=== PATIENT | male | born 1940 | race Caucasian/White ===

== ENCOUNTER → 2016-08-26 | Outpatient (CLI) | payer OTHER ==
[~2016-08-26] MED LIST: MULT-190 PO; NUTR1TAB3 PO; TAMS0.4C38 PO
[2016-08-26 12:25] LABS: BLOOD UREA NITROGEN 17 mg/dl (7-18); BUN/CREATININE RATIO 14.3 (10-20)
== END | disposition home or self-care (01) ==
LOC: C.LAB 10:33
PROVIDERS: ATTEND Urology
DX: R10.9 Unspecified abdominal pain (principal)

== ENCOUNTER → 2016-09-03 | Outpatient (CLI) | payer OTHER ==
[~2016-09-03] MED LIST changes: +OPTIRAY 300 IV PRN
--- NOTE | 2016-09-03 13:38 | DIAGNOSTIC IMAGING REPORT ---
IV PYELOGRAM CLINICAL HISTORY: Bladder cancer. COMPARISON STUDY: Abdominal CT dated 03/12/2016. TECHNIQUE: An abdominal documentation liaison radiograph is performed. IVP pyelogram was then performed following the IV administration of 100 cc of Optiray 300, tomographic images are acquired in the corticomedullary and excretory phases of enhancement. Overhead views of the renal collecting system and bladder were obtained in multiple obliquities both pre and post void. FINDINGS: An abdominal documentation liaison radiograph shows a nonobstructed abdominal bowel gas pattern. No renal calculi are identified. The skeletal structures are osteopenic. Lumbosacral spondylosis is observed. Vascular calcifications are identified in the pelvis. Following contrast administration the kidneys enhance and excrete symmetrically. There is no hydronephrosis. No filling defects are identified within the renal collecting system bilaterally or along the course of the ureters to suggest urothelial lesion. The bladder was grossly normal as visualized. No significant post void residual is seen. IMPRESSION: Unremarkable IV pyelogram. Electronically signed by: Dylan Mora M.D. 09/03/2016 1:36 PM Dictated Date/Time: 09/03/2016 1:31 PM
== END | disposition home or self-care (01) ==
LOC: C.RAD 11:54
PROVIDERS: ATTEND Urology
DX: J43.9 Emphysema, unspecified (principal); R10.9 Unspecified abdominal pain

== ENCOUNTER → 2016-11-18 | Outpatient (CLI) | payer OTHER ==
[~2016-11-18] MED LIST changes: -OPTIRAY 300 IV PRN
== END | disposition home or self-care (01) ==
LOC: C.LABBC 08:02
PROVIDERS: ATTEND Urology
DX: C67.9 Malignant neoplasm of bladder, unspecified (principal); R97.20 Elevated prostate specific antigen [PSA]

== ENCOUNTER → 2016-11-26 | Outpatient (CLI) | payer OTHER | END | disposition home or self-care (01) | LOC: C.LABSPEC 18:06 | PROVIDERS: ATTEND Urology | DX: C67.9 Malignant neoplasm of bladder, unspecified (principal) ==

== ENCOUNTER → 2017-07-07 | Outpatient (CLI) | payer OTHER | END | disposition home or self-care (01) | LOC: C.LABBC 08:58 | PROVIDERS: ATTEND Urology | DX: C67.9 Malignant neoplasm of bladder, unspecified (principal) ==

== ENCOUNTER → 2018-03-23 | Outpatient (CLI) | payer OTHER | END | disposition home or self-care (01) | LOC: C.PATHSPEC 17:50 | PROVIDERS: ATTEND Urology | DX: C61 Malignant neoplasm of prostate (principal); C67.9 Malignant neoplasm of bladder, unspecified ==

== ENCOUNTER → 2018-04-05 | Outpatient (CLI) | payer OTHER ==
[2018-04-05 09:33] LABS: BLOOD UREA NITROGEN 19 mg/dl (7-18); CREATININE 1.17 mg/dl (0.60-1.40)
== END | disposition home or self-care (01) ==
LOC: C.LAB 07:45
PROVIDERS: ATTEND Urology
DX: C67.9 Malignant neoplasm of bladder, unspecified (principal)

== ENCOUNTER → 2018-04-19 | Outpatient (CLI) | payer OTHER ==
[~2018-04-19] MED LIST changes: +OPTIRAY 300 IV PRN
--- NOTE | 2018-04-19 14:04 | DIAGNOSTIC IMAGING REPORT ---
IVP W/OR W/O TOMOGRAMS CLINICAL HISTORY: C67.9 Recurrent transitional cell carcinoma of [id number] bladder carcinoma COMPARISON STUDY: 09/03/2016 FINDINGS: Survey evaluation of the abdomen shows renal and psoas shadows to be unremarkable. This examination is performed from the administration of nonionic contrast. There is prompt opacification of the upper collecting systems bilaterally. There are no significant filling defects identified. There is no evidence for hydronephrosis. Ureters normal in course and caliber. Bladder fills appropriately, with a suggestion of a potential small filling defect of the bladder base. This is unchanged, however compared to the prior study and potentially represents an indentation from the prostate.. There are no significant filling defects. Appears be a small left ureterocele. Post void shows no significant residual. IMPRESSION: 1. Unremarkable intravenous . 2. No change from the prior exam. 3. Focal indentation of the bladder base due to focal prominence of the prostate. The above report was generated using voice recognition software. It may contain grammatical, syntax or spelling errors. Electronically signed by: Jaswinder Krishna M.D. 04/19/2018 1:57 PM Dictated Date/Time: 04/19/2018 1:55 PM
== END | disposition home or self-care (01) ==
LOC: C.RAD 12:16
PROVIDERS: ATTEND Urology
DX: C67.9 Malignant neoplasm of bladder, unspecified (principal)

== ENCOUNTER 2024-11-01 23:13 | Inpatient (IN) ==
[2024-11-01 23:51] LABS: Basophils # (auto) 0.04 K/uL (0.00-0.20); Basophils % (auto) 0.3 %; Hematocrit (blood only) 44.3 % (42.0-52.0); Immature Granulocytes # (auto) 0.06 K/uL (0.01-0.20); Immature Granulocytes % (auto) 0.5 %; Lymphocytes # (auto) 0.93 K/uL (1.20-3.40); Mean Corpuscular Hemoglobin 35.9 pg (25.0-34.0); Mean Corpuscular Hgb Conc 33.9 g/dL (32.0-36.0); Monocytes # (auto) 1.74 K/uL (0.11-0.59); Monocytes % (auto) 14.9 %; Neutrophils # (auto) 8.92 K/uL (1.40-6.50); Neutrophils % (auto) 76.3 %; Platelet Count 154 K/uL (130-400); RDW Coefficient of Variation 14.6 % (11.5-14.5); RDW Standard Deviation 57.2 fL (36.4-46.3); Red Blood Count 4.18 M/uL (4.70-6.10); White Blood Count 11.69 K/ul (4.8-10.8)
[2024-11-02 00:04] LABS: Albumin Globulin Ratio 1.3 (0.9-2); Albumin Level 4.2 gm/dl (3.4-5.0); BUN Creatinine Ratio 21.6 (10-20); Bilirubin,Total 0.9 mg/dl (0.2-1.0); Calcium 9.6 mg/dl (8.6-10.3); Creatinine Clr Calc Pharmacy 45.6 ml/min; Globulin 3.2 gm/dl (2.5-4.0); Total Protein 7.4 gm/dl (6.0-8.3)
[2024-11-02] MEDS: CEFEPIME 2000MG 2,000 MG/20 ML SYR IV STA (00:12)
[2024-11-02] MEDS: ACETAMINOPHEN 1,000 MG/100 ML VIAL IV STA (00:12)
[2024-11-02 00:20] LABS: Thyroid Stimulating Hormone 1.912 uIu/ml (0.300-4.500)
--- NOTE | 2024-11-02 00:20 | Emergency Department Note ---
Impression & Plan Acute alteration in mental status, Fever ED Provider Note CHIEF COMPLAINT: Weakness HISTORY OF PRESENT ILLNESS: This 84-year-old male patient with PMH prostate cancer, bladder cancer, hyperlipidemia, alcohol dependency, urinary retention and urethral stricture with mild cognitive impairment presents to the emergency department with weakness for 4 days. He states he has not been able to get up off of the couch. He states he has been finding "hiding places" and states he has been trying to stay "low to the ground."Patient denies any fevers, chest pain, shortness of breath or abdominal pain. He is noted to have a fever at triage. A friend that checks on the patient daily was unable to get in contact with him by phone several times today and went to his house. Patient was noted to be on the couch and not able to get up. EMS was contacted. The patient was not noted to be incontinent however. Patient is a poor historian. REVIEW OF SYSTEMS: Unable to obtain a full review of systems secondary to the patient's mental status. ALLERGIES: see below MEDICATIONS: see below PMH: see below SOCIAL HISTORY: see below DDx: Influenza, COVID, UTI, metabolic abnormality, pneumonia, medication effect, intracranial mass, intracranial hemorrhage among others. PHYSICAL EXAM: Vital signs reviewed. General: Somewhat ill-appearing 84-year-old male, in no significant distress. HEENT: No scleral icterus, PERRLA, neck supple. moist mucous membranes. Cardiovascular: tachycardic but regular, no extra sounds. Pulmonary: Clear to auscultation bilaterally, normal work of breathing. Abdomen: Soft, nontender, nondistended, positive bowel sounds. Musculoskeletal: Atraumatic, no peripheral edema. Neurologic: Patient awake alert and answers questions, disoriented to year and time. seems to be confused. Skin: Warm, dry, no rash EMERGENCY DEPARTMENT COURSE/MDM: This patient was evaluated and appeared to be in no significant distress. IV access was obtained and laboratory work was drawn. The patient was placed on the factory laborer and noted to be in sinus tachycardia. He was also noted to have a low-grade fever at 38. IV fluids were initiated, blood cultures were drawn and the patient was hydrated with normal saline solution. Laboratory work reveals a mild leukocytosis, negative procalcitonin and lactate. UA is largely negative, BioFire is negative. Chest x-ray reveals some perihilar fullness without evidence of focal lung consolidation. Head CT is negative for acute process but does reveal evidence of old lacunar infarct and some atrophy. Patient was medicated with IV ceftriaxone and acetaminophen. Given the patient's fevers and change in mental status, patient's case was discussed with the hospitalist service to evaluate the patient for admission and further management. MONITORING: An order for cardiac monitoring was placed and the patient is noted to be in a sinus tachycardia at 108 beats per minute. RADIOLOGY: chest x-ray to my interpretation reveals no focal lung consolidation or failure. Head CT per radiology: IMPRESSION: No acute stroke or hemorrhage. 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 Non-specific white matter changes, most commonly seen with small vessel disease. EKG: To my interpretation reveals a sinus tachycardia at [address] segments. No PVC, no PAC. QTc of 433. DISPOSITION: Admission Past Med/Surg History Problem List (Updated 11/06/24 @ 17:30 by Kaitlynn Lozano MD) Fever (Acute) Acute alteration in mental status (Acute) Wernickes encephalopathy Urinary tract infection Confusion and disorientation MCI (mild cognitive impairment) Urethral stricture Abnormal gait BPH NOS w ur obs/LUTS Incomplete emptying of bladder Macrocytosis Alcohol dependence Chronic cough Exertional shortness of breath Vitamin D deficiency Hyperlipidemia Insomnia Transitional cell bladder cancer (~2007) Prostate cancer (02/27/15) "History of bladder CA diagnosed 09/30/2007 recheck cystoscopies with fulguration negative since 2010 Rising PSA, pretreatment PSA 6.87, biopsy stage T2a Status post ultrasound-guided biopsy revealing adenocarcinoma the prostate Leeson 3+3 Prostate volume 24.1 Prostate density 0.285" On 03/14/15 10:43 Agueda Pinto wrote "History of bladder CA diagnosed 09/30/2007 recheck cystoscopies with fulguration negative since 2010 Rising PSA, pretreatment PSA 6.87 Status post ultrasound-guided biopsy revealing adenocarcinoma the prostate Leeson 3+3 Prostate volume 24.1 Prostate density 0.285" Medical History Cognitive and behavioral changes - per friend/POA - Trevor Montalvo. patient is alert and oriented most times. 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 GERD (gastroesophageal reflux disease) POA/friend unsure of current issues Aortic atherosclerosis mild calcified plaque to thoracic aorta per [address] Surgical History History of tooth extraction all teeth removed Hx of cystoscopy with fulgeration in the office H/O transurethral resection of bladder tumor (TURBT) hx? H/O colonoscopy Family History Other No pertinent family history Unobtainable family history due to adoption Social History Smoking Status: Former smoker Tobacco Type: Cigarettes Age Started Using Tobacco: 13; Age Quit Using Tobacco: 67; packs per day: 7; Cigarettes Per Day: hx heavy smoking history; Second Hand Exposure: No; Do You Dip or Chew Tobacco: No; Hx Alcohol Use: No Hx Substance Use: No Preferred Language: Spanish Communication Ability: Impaired Communication Ability Comment: patient has memory loss, has appt with pcp in the near future Visual Impairment: Limited Hearing Ability: Normal Computing Systems Mechanic Required: No Beliefs That Will Affect Care: None marital status: Single Current Living Situation: Alone current occupational status: retired How many Children do You have: 0 Other Information That Helps Us Care for You: No Feels Safe at Home: Yes Safety Concerns: Feels Safe At This Time Childhood Exposure to Second-Hand Smoke: No Diet: regular caffeine: Yes Dental Care, Regularly: No Physical Activity Frequency: Does not Exercise Seatbelt Use: always Sunscreen Use: No Assistive Devices: None Allergies Allergies Allergy/AdvReac Type Severity Reaction Status Date / Time Penicillins Allergy Intermediate hives as a Verified 11/02/24 00:39 child cat dander Allergy Mild RASH Verified 11/02/24 00:39 dutasteride [From Angelica] Allergy Unknown CAN'T Verified 11/02/24 00:39 REMEMBER Home Meds Home Medications Medication Instructions Recorded Confirmed vit C 50 mg-E 15 unit-zinc cit 4.5 2 tab PO DAILY 08/09/19 11/02/24 mg-lutein 2.5 mg-zeaxan chew tablet (SchoolFeed) flntbdjx-ix-iwohr 300 mcg-K 60 1 tab PO DAILY 01/14/22 11/02/24 mcg-lycop 600 mcg-lutein 300 mcg tablet (Centrum Silver Ultra Men's) atorvastatin 10 mg tablet 10 mg PO HS 08/04/24 11/02/24 finasteride 5 mg tablet (Proscar) 5 mg PO QAM 08/04/24 11/02/24 tamsulosin 0.4 mg capsule 0.4 mg PO QAM 08/04/24 11/02/24 umeclidinium 62.5 mcg-vilanterol 1 inh inhalation QAM 08/04/24 11/02/24 25 mcg/actuation powdr for inhalation (Anoro Ellipta) Results & Data (ED) Vital Signs Vital Signs - 24 hr 11/01/24 23:18 11/01/24 23:18 11/01/24 23:18 Temperature 38.8 C H 38.8 C H Temperature Source Oral Oral Pulse Rate 108 H Pulse Rate [Apical] 108 H Pulse Rhythm Regular Pulse Rhythm [Apical] Regular Pulse Strength Normal Pulse Strength [Apical] Normal Respiratory Rate 18 18 Respiratory Effort / Characteristics Non-Labored Spontaneous Non-Labored Spontaneous Respiratory Depth Normal Normal Respiratory Pattern Regular Blood Pressure 125/62 Blood Pressure [Right Arm] 125/62 Blood Pressure Mean 83 Blood Pressure Mean [Right Arm] 83 Blood Pressure Position Semi-fowlers Blood Pressure Position [Right Arm] Semi-fowlers Pulse Oximetry 97 89 L 97 Oxygen Delivery Method Nasal Cannula Room Air Nasal Cannula Oxygen Flow Rate 2 2 Sepsis Recent Fever Within 48 Hours Yes Sepsis New/Unexplained Change in Mental Status No Sepsis Action Taken by Nursing Physician Notified Oxygen Flow Rate - Titration 2 Fraction of Inspired Oxygen - Titration 97 11/01/24 23:18 11/01/24 23:19 11/01/24 23:20 Temperature Temperature Source Pulse Rate 108 H 109 H 108 H Pulse Rate [Apical] Pulse Rhythm Regular Regular Pulse Rhythm [Apical] Pulse Strength Pulse Strength [Apical] Respiratory Rate 18 18 Respiratory Effort / Characteristics Respiratory Depth Respiratory Pattern Blood Pressure Blood Pressure [Right Arm] Blood Pressure Mean Blood Pressure Mean [Right Arm] Blood Pressure Position Blood Pressure Position [Right Arm] Pulse Oximetry 97 97 Oxygen Delivery Method Nasal Cannula Nasal Cannula Oxygen Flow Rate 2 2 Sepsis Recent Fever Within 48 Hours Sepsis New/Unexplained Change in Mental Status Sepsis Action Taken by Nursing Oxygen Flow Rate - Titration Fraction of Inspired Oxygen - Titration Home Medications Current Medication List: was personally reviewed by me Laboratory Data Attestation: I reviewed the patient's lab results. 11/04/24 13:04 11/04/24 13:04 Lab Results 11/01/24 11/01/24 11/02/24 Range/Units 23:24 23:39 00:34 WBC 11.69 H (4.8-10.8) K/ul RBC 4.18 L (4.70-6.10) M/uL Hgb 15.0 (14.0-18.0) g/dl Hct 44.3 (42.0-52.0) % MCV 106.0 H (80.0-100.0) fL MCH 35.9 H (25.0-34.0) pg MCHC 33.9 (32.0-36.0) g/dL RDW Std Deviation 57.2 H (36.4-46.3) fL RDW Coeff of Mary 14.6 H (11.5-14.5) % Plt Count 154 (130-400) K/uL MPV 10.0 (9.4-12.4) fL Immature Gran % (Auto) 0.5 % Neut % (Auto) 76.3 % Lymph % (Auto) 8.0 % [place] % (Auto) 14.9 % Eos % (Auto) 0.0 % Baso % (Auto) 0.3 % Neut # (Auto) 8.92 H (1.40-6.50) K/uL Lymph # (Auto) 0.93 L (1.20-3.40) K/uL [place] # (Auto) 1.74 H (0.11-0.59) K/uL Eos # (Auto) 0.00 (0.00-0.50) K/uL Baso # (Auto) 0.04 (0.00-0.20) K/uL Immature Gran # (Auto) 0.06 (0.01-0.20) K/uL Sodium 138 (136-145) mmol/L Potassium 4.0 (3.5-5.1) mmol/L Chloride 105 (98-107) mmol/L Carbon Dioxide 23 (21-32) mmol/L Anion Gap 10 (3-11) BUN 29 H (6-23) mg/dl Creatinine 1.34 (0.6-1.4) mg/dl Est Cr Clr Drug Dosing 45.6 ml/min eGFR 52.24 BUN/Creatinine Ratio 21.6 H (10-20) Glucose 160 H (70-99(Fasting)) mg/dl Estimat Average Glucose 120 mg/dl Hemoglobin A1c 5.8 H (4.5-5.6) % Lactate (0.4-2.0) mmol/L Calcium 9.6 (8.6-10.3) mg/dl Magnesium 2.0 (1.7-2.4) mg/dl Total Bilirubin 0.9 (0.2-1.0) mg/dl AST 60 H (13-39) U/L ALT 19 (7-52) U/L Alkaline Phosphatase 54 (34-104) U/L Total Creatine Kinase (30-223) U/L Total Protein 7.4 (6.0-8.3) gm/dl Albumin 4.2 (3.4-5.0) gm/dl Globulin 3.2 (2.5-4.0) gm/dl Albumin/Globulin Ratio 1.3 (0.9-2) Procalcitonin 0.38 (0-0.5) ng/ml TSH 1.912 (0.300-4.500) uIu/ml Urine Color Yellow Urine Appearance Clear (Clear) Urine pH 5.5 (4.5-7.5) Ur Specific [place] 1.022 (1.000-1.030) Urine Protein 2+ H (Negative) Urine Glucose (UA) Negative (Negative) Urine Ketones 2+ H (Negative) Urine Blood 2+ H (Negative) Urine Nitrite Negative (Negative) Urine Bilirubin Negative (Negative) Urine Urobilinogen Negative (Negative) Ur Leukocyte Esterase Trace H (Negative) Urine WBC (Auto) 0-5 (0-5) /hpf Urine RBC (Auto) 3-5 H (0-2) /hpf U Hyaline Cast (Auto) 3-5 H (0-2) /lpf U Epithel Cells (Auto) 0-2 (0-2) /hpf Urine Bacteria (Auto) None Seen (None Seen) Ethyl Alcohol mg/dL < 10.0 (<10.0) mg/dl Adenovirus (PCR) Not Detected (NotDetected) B. pertussis DNA (PCR) Not Detected (NotDetected) B.parapertussis DNA PCR Not Detected (NotDetected) C. pneumoniae DNA (PCR) Not Detected (NotDetected) Coronavirus OC43 (PCR) Not Detected (NotDetected) Coronavirus HKU1 (PCR) Not Detected (NotDetected) Coronavirus 229E (PCR) Not Detected (NotDetected) SARS-CoV-2 (PCR) Not Detected (NotDetected) Coronavirus NL63 (PCR) Not Detected (NotDetected) Human Metapneumovir PCR Not Detected (NotDetected) Influenza Type A (PCR) Not Detected (NotDetected) Influenza Type B (PCR) Not Detected (NotDetected) M. pneumoniae (PCR) Not Detected (NotDetected) Parainfluenza 1 (PCR) Not Detected (NotDetected) Parainfluenza 2 (PCR) Not Detected (NotDetected) Parainfluenza 3 (PCR) Not Detected (NotDetected) Parainfluenza 4 (PCR) Not Detected (NotDetected) RSV (PCR) Not Detected (NotDetected) Entero/Rhino (PCR) Not Detected (NotDetected) 11/02/24 11/03/24 Range/Units 01:02 09:04 WBC (4.8-10.8) K/ul RBC (4.70-6.10) M/uL Hgb (14.0-18.0) g/dl Hct (42.0-52.0) % MCV (80.0-100.0) fL MCH (25.0-34.0) pg MCHC (32.0-36.0) g/dL RDW Std Deviation (36.4-46.3) fL RDW Coeff of Mary (11.5-14.5) % Plt Count (130-400) K/uL MPV (9.4-12.4) fL Immature Gran % (Auto) % Neut % (Auto) % Lymph % (Auto) % [place] % (Auto) % Eos % (Auto) % Baso % (Auto) % Neut # (Auto) (1.40-6.50) K/uL Lymph # (Auto) (1.20-3.40) K/uL [place] # (Auto) (0.11-0.59) K/uL Eos # (Auto) (0.00-0.50) K/uL Baso # (Auto) (0.00-0.20) K/uL Immature Gran # (Auto) (0.01-0.20) K/uL Sodium (136-145) mmol/L Potassium (3.5-5.1) mmol/L Chloride (98-107) mmol/L Carbon Dioxide (21-32) mmol/L Anion Gap (3-11) BUN (6-23) mg/dl Creatinine (0.6-1.4) mg/dl Est Cr Clr Drug Dosing ml/min eGFR BUN/Creatinine Ratio (10-20) Glucose (70-99(Fasting)) mg/dl Estimat Average Glucose mg/dl Hemoglobin A1c (4.5-5.6) % Lactate 0.8 (0.4-2.0) mmol/L Calcium (8.6-10.3) mg/dl Magnesium (1.7-2.4) mg/dl Total Bilirubin (0.2-1.0) mg/dl AST (13-39) U/L ALT (7-52) U/L Alkaline Phosphatase (34-104) U/L Total Creatine Kinase 920 H (30-223) U/L Total Protein (6.0-8.3) gm/dl Albumin (3.4-5.0) gm/dl Globulin (2.5-4.0) gm/dl Albumin/Globulin Ratio (0.9-2) Procalcitonin (0-0.5) ng/ml TSH (0.300-4.500) uIu/ml Urine Color Urine Appearance (Clear) Urine pH (4.5-7.5) Ur Specific [place] (1.000-1.030) Urine Protein (Negative) Urine Glucose (UA) (Negative) Urine Ketones (Negative) Urine Blood (Negative) Urine Nitrite (Negative) Urine Bilirubin (Negative) Urine Urobilinogen (Negative) Ur Leukocyte Esterase (Negative) Urine WBC (Auto) (0-5) /hpf Urine RBC (Auto) (0-2) /hpf U Hyaline Cast (Auto) (0-2) /lpf U Epithel Cells (Auto) (0-2) /hpf Urine Bacteria (Auto) (None Seen) Ethyl Alcohol mg/dL (<10.0) mg/dl Adenovirus (PCR) (NotDetected) B. pertussis DNA (PCR) (NotDetected) B.parapertussis DNA PCR (NotDetected) C. pneumoniae DNA (PCR) (NotDetected) Coronavirus OC43 (PCR) (NotDetected) Coronavirus HKU1 (PCR) (NotDetected) Coronavirus 229E (PCR) (NotDetected) SARS-CoV-2 (PCR) (NotDetected) Coronavirus NL63 (PCR) (NotDetected) Human Metapneumovir PCR (NotDetected) Influenza Type A (PCR) (NotDetected) Influenza Type B (PCR) (NotDetected) M. pneumoniae (PCR) (NotDetected) Parainfluenza 1 (PCR) (NotDetected) Parainfluenza 2 (PCR) (NotDetected) Parainfluenza 3 (PCR) (NotDetected) Parainfluenza 4 (PCR) (NotDetected) RSV (PCR) (NotDetected) Entero/Rhino (PCR) (NotDetected) Administered Medications Aspirin (Aspirin 81 Mg Chew) 81 mg PO DAILY MAX Stop: 12/02/24 08:59 Last Admin: 11/06/24 07:46 Dose: Not Given Documented By: Admin: 11/05/24 09:18 Dose: 81 mg Documented By: Admin: 11/04/24 08:22 Dose: 81 mg Documented By: Admin: 11/03/24 09:28 Dose: 81 mg Documented By: Admin: 11/02/24 09:36 Dose: 81 mg Documented By: MMF Atorvastatin Calcium (Atorvastatin 10 Mg Tab) 10 mg PO HS MAX Stop: 12/02/24 20:59 Last Admin: 11/05/24 20:01 Dose: 10 mg Documented By: Admin: 11/04/24 20:56 Dose: 10 mg Documented By: Admin: 11/03/24 21:10 Dose: 10 mg Documented By: Admin: 11/02/24 20:25 Dose: 10 mg Documented By: PARISH Finasteride (Finasteride 5 Mg Tab) 5 mg PO QAM MAX Stop: 12/02/24 08:59 Last Admin: 11/06/24 07:45 Dose: 5 mg Documented By: Admin: 11/05/24 08:09 Dose: 5 mg Documented By: Admin: 11/04/24 08:10 Dose: 5 mg Documented By: Admin: 11/03/24 09:28 Dose: 5 mg Documented By: Admin: 11/02/24 09:36 Dose: 5 mg Documented By: LUCAS Thiamine HCl 100 mg/ Syringe 10 mls @ 2 mls/min IV QAM [facility] Stop: 12/02/24 08:59 Last Admin: 11/06/24 07:47 Dose: 2 mls/min Documented By: Admin: 11/05/24 08:10 Dose: 2 mls/min Documented By: Admin: 11/04/24 08:10 Dose: 2 mls/min Documented By: Admin: 11/03/24 09:28 Dose: 2 mls/min Documented By: Admin: 11/02/24 09:37 Dose: 2 mls/min Documented By: LUCAS Folic Acid 1 mg/ Syringe 10 mls @ 5 mls/min IV QAM MAX Stop: 12/02/24 08:59 Last Admin: 11/06/24 07:46 Dose: 5 mls/min Documented By: Admin: 11/05/24 08:10 Dose: 5 mls/min Documented By: Admin: 11/04/24 08:10 Dose: 5 mls/min Documented By: Admin: 11/03/24 09:27 Dose: 5 mls/min Documented By: Admin: 11/02/24 09:37 Dose: 5 mls/min Documented By: LUCAS Lorazepam (Lorazepam 2 Mg/1 Ml Vial) 1 mg IV UD PRN; Protocol PRN Reason: EtOH Withdrawal AWSS Score 6,7 Stop: 12/02/24 02:45 Last Admin: 11/02/24 20:37 Dose: 1 mg Documented By: PARISH Lorazepam (Lorazepam 2 Mg/1 Ml Vial) 2 mg IV UD PRN; Protocol PRN Reason: EtOH Withdrawal AWSS Score 8,9 Stop: 12/02/24 02:45 Last Admin: 11/03/24 01:06 Dose: 2 mg Documented By: PARISH Melatonin (Melatonin 3 Mg Tab) 6 mg PO HS PRN PRN Reason: Sleep Stop: 12/03/24 19:35 Last Admin: 11/03/24 21:10 Dose: 6 mg Documented By: PARISH Tamsulosin HCl (Tamsulosin Hcl 0.4 Mg Cap) 0.4 mg PO QAM [facility] Stop: 12/02/24 08:59 Last Admin: 11/06/24 07:46 Dose: 0.4 mg Documented By: Admin: 11/05/24 08:09 Dose: 0.4 mg Documented By: Admin: 11/04/24 08:10 Dose: 0.4 mg Documented By: Admin: 11/03/24 09:28 Dose: 0.4 mg Documented By: Admin: 11/02/24 09:36 Dose: 0.4 mg Documented By: MMF Umeclidinium/Vilanterol (Umeclidinium/Vilanterol 62.5/25mcg 7 Puffs/Inhaler) 1 puffs [facility] Stop: 12/02/24 08:59 Last Admin: 11/06/24 07:46 Dose: 1 puffs Documented By: Admin: 11/05/24 08:10 Dose: 1 puffs Documented By: Admin: 11/04/24 08:10 Dose: 1 puffs Documented By: Admin: 11/03/24 09:36 Dose: Not Given Documented By: Admin: 11/02/24 09:36 Dose: 1 puffs Documented By: MMF Discontinued Medications Acetaminophen (Ofirmev) 1,000 mg in 100 mls @ 400 mls/hr IV NOW STA Stop: 11/02/24 00:16 Last Infusion: 11/02/24 00:46 Dose: Infused Documented By: Admin: 11/02/24 00:12 Dose: 400 mls/hr Documented By: IDD Cefepime HCl (Maxipime 2000mg) 2,000 mg in 20 mls @ 5 mls/min IV NOW STA; Protocol Stop: 11/02/24 00:06 Last Admin: 11/02/24 00:12 Dose: 5 mls/min Documented By: MAMADOU Sodium Chloride (Nss) 1,000 mls @ 999 mls/hr IV .Q1H1M ONE Stop: 11/02/24 01:57 Last Infusion: 11/02/24 02:33 Dose: Infused Documented By: Admin: 11/02/24 01:06 Dose: 999 mls/hr Documented By: MAMADOU Melatonin (Melatonin 3 Mg Tab) 6 mg PO NOW STA Stop: 11/03/24 03:26 Last Admin: 11/03/24 03:46 Dose: 6 mg Documented By: PARISH Imaging Data Radiologist's Impression: Head CT 11/01/24 23:25 Exam(s): CT HEAD Without Contrast EXAM: CT Head Without Intravenous Contrast CLINICAL HISTORY: AMS. TECHNIQUE: Axial computed tomography images of the head/brain without intravenous contrast. CTDI is 38.78 mGy and DLP is 625.8 mGy-cm. Automated exposure control was utilized for the study. A dose lowering technique was utilized adhering to the principles of ALARA. COMPARISON: No relevant prior studies available. FINDINGS: Brain: Age-appropriate generalized atrophy. No acute stroke. 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 Mild supratentorial periventricular and subcortical white matter changes. No acute hemorrhage or abnormal extra-axial fluid collection. Ventricles: No hydrocephalus. No midline shift. Bones/joints: Unremarkable. No acute fracture. Soft tissues: Unremarkable. Sinuses: Unremarkable as visualized. No acute sinusitis. IMPRESSION: No acute stroke or hemorrhage. 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 Non-specific white matter changes, most commonly seen with small vessel disease. Electronically signed by: Neftali Campbell M.D. 11/02/24 00:45 AM Discharge Plan Visit Data Chief Complaint: Weakness Stated Complaint: WEAKNESS ED Provider: Kaitlynn Lozano Discharge Problem: Acute alteration in mental status, Fever Patient Disposition: Admitted As Inpatient Discharge Instructions Interventions: ED Discharge Assessment Last Done: 11/02/24 02:46 Discharge Problem: Fever Qualifiers: Fever type: unspecified Qualified Code(s): R50.9 - Fever, unspecified
[2024-11-02 00:41] LABS: Adenovirus PCR Not Detected (NotDetected); Bordetella parapertussis PCR Not Detected (NotDetected); Bordetella pertussis PCR Not Detected (NotDetected); Chlamydia pneumoniae PCR Not Detected (NotDetected); Coronavirus 229E PCR Not Detected (NotDetected); Coronavirus CoV-2 (COVID19)PCR Not Detected (NotDetected); Coronavirus HKU1 PCR Not Detected (NotDetected); Coronavirus NL63 PCR Not Detected (NotDetected); Coronavirus OC43PCR Not Detected (NotDetected); Human Metapneumovirus PCR Not Detected (NotDetected); Influenza A PCR Not Detected (NotDetected); Influenza B PCR Not Detected (NotDetected); Mycoplasma pneumoniae PCR Not Detected (NotDetected); Parainfluenza Virus 1 PCR Not Detected (NotDetected); Parainfluenza Virus 2 PCR Not Detected (NotDetected); Parainfluenza Virus 3 PCR Not Detected (NotDetected); Parainfluenza Virus 4 PCR Not Detected (NotDetected); Respiratory Syncytial VirusPCR Not Detected (NotDetected); Rhinovirus/Enterovirus PCR Not Detected (NotDetected)
--- NOTE | 2024-11-02 00:46 | CT Scan Report ---
Exam(s): CT HEAD Without Contrast EXAM: CT Head Without Intravenous Contrast CLINICAL HISTORY: AMS. TECHNIQUE: Axial computed tomography images of the head/brain without intravenous contrast. CTDI is 38.78 mGy and DLP is 625.8 mGy-cm. Automated exposure control was utilized for the study. A dose lowering technique was utilized adhering to the principles of ALARA. COMPARISON: No relevant prior studies available. FINDINGS: Brain: Age-appropriate generalized atrophy. No acute stroke. 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 Mild supratentorial periventricular and subcortical white matter changes. No acute hemorrhage or abnormal extra-axial fluid collection. Ventricles: No hydrocephalus. No midline shift. Bones/joints: Unremarkable. No acute fracture. Soft tissues: Unremarkable. Sinuses: Unremarkable as visualized. No acute sinusitis. IMPRESSION: No acute stroke or hemorrhage. 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 Non-specific white matter changes, most commonly seen with small vessel disease. Electronically signed by: Neftali Campbell M.D. 11/02/24 00:45 AM
[2024-11-02 00:57] LABS: Appearance Urine Clear (Clear); Bacteria Urine Automated None Seen (None Seen); Bilirubin Urine Negative (Negative); Blood Urine 2+ (Negative); Color Urine Yellow; Epithelial Cell Urine Auto 0-2 /hpf (0-2); Glucose Urine UA Negative (Negative); Ketones Urine 2+ (Negative); Leukocyte Esterase Urine Trace (Negative); Nitrite Urine Negative (Negative); Protein Urine 2+ (Negative); Specific Gravity Urine 1.022 (1.000-1.030); Urobilinogen Urine Negative (Negative); WBC Urine Automated 0-5 /hpf (0-5); pH Urine 5.5 (4.5-7.5)
[2024-11-02] MEDS: SODIUM CHLORIDE 0.9% 1,000 ML IV ONE (01:06)
--- NOTE | 2024-11-02 01:39 | History & Physical Report ---
Date of Service November 02, 2024 Assessment & Plan (1) Confusion and disorientation: (2) Alcohol dependence: (3) Urinary tract infection: (4) Wernickes encephalopathy: (5) Prostate cancer: (6) Transitional cell bladder cancer: Plan The patient is an 84-year-old male with past medical history including mild cognitive impairment, urethral stricture, BPH with LUTS, incomplete bladder emptying, alcohol dependence, vit D deficiency, hyperlipidemia, insomnia, transitional bladder cell cancer, and prostate cancer.Patient is brought to the emergency department after his friend who checks on him regularly, found him in a more disheveled state than usual., Lying on the sofa in his home, and unable to get up on his own. His friend reports that he usually checks him on a daily basis, had not seen him yesterday, but did become concerned when he tried to call his friend this evening, and Mr. Thomas did not respond. Mr. Thomas has been undergoing weekly BCG intravesical injections, and his most recent was on Thursday, 4 days ago. The patient was brought to the emergency department for evaluation, was found to be weak, able to respond to questions but slowed, and was referred for evaluation for admission to the [facility]. Workup in the emergency department included a chest x-ray which was negative, and CT scan of head without contrast which showed a small right basal ganglia infarct and chronic small vessel disease. From the emergency department, patient received Tylenol 1 g IV, and cefepime 2 g IV. Confusion and disorientation- Multifactorial, with contributing factors including not limited to: Urinary tract infection status post BCG intravesical injection, Warnicke's encephalopathy, progression of underlying dementia, progression to general debilitation, alcohol withdrawal, others Urinary tract infection- Most recent intravesical injection treatment was about 4 days ago Follow urine culture and sensitivity Empiric cefepime 2 g IV every 24 hours Warnicke's encephalopathy/alcohol withdrawal/alcohol dependence- AWSS protocol with IV Ativan Thiamine 100 mg IV daily Folic acid 1 mg IV daily Suspect this is a new diagnosis Cognitive impairment/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 His friend reports that he usually checks him on a daily basis, had not seen him yesterday, but did become concerned when he tried to call his friend this evening, and Mr. Thomas did not respond. Mr. Thomas has been undergoing weekly BCG intravesical injections, and his most recent was on Thursday, 4 days ago. The patient was brought to the emergency department for evaluation, was found to be weak, able to respond to questions but slowed, and was referred for evaluation for admission to the [facility] Primary Care Provider: Mike Zurita DO The patient is an 84-year-old male with past medical history including mild cognitive impairment, urethral stricture, BPH with LUTS, incomplete bladder emptying, alcohol dependence, vit D deficiency, hyperlipidemia, insomnia, transitional bladder cell cancer, and prostate cancer.Patient is brought to the emergency department after his friend who checks on him regularly, found him in a more disheveled state than usual., Lying on the sofa in his home, and unable to get up on his own. His friend reports that he usually checks him on a daily basis, had not seen him yesterday, but did become concerned when he tried to call his friend this evening, and Mr. Thomas did not respond. Mr. Thomas has been undergoing weekly BCG intravesical injections, and his most recent was on Thursday, 4 days ago. The patient was brought to the emergency department for evaluation, was found to be weak, able to respond to questions but slowed, and was referred for evaluation for admission to the [facility] Allergies Allergy/AdvReac Type Severity Reaction Status Date / Time Penicillins Allergy Intermediate hives as a Verified 11/02/24 00:39 child cat dander Allergy Mild RASH Verified 11/02/24 00:39 dutasteride [From Angelica] Allergy Unknown CAN'T Verified 11/02/24 00:39 REMEMBER Home Medications Medication Instructions Recorded Confirmed Type vit C 50 mg-E 15 unit-zinc cit 4.5 2 tab PO DAILY 08/09/19 11/02/24 History mg-lutein 2.5 mg-zeaxan chew tablet (Happy Kidz) lnucwwzz-ac-srdwo 300 mcg-K 60 1 tab PO DAILY 01/14/22 11/02/24 History mcg-lycop 600 mcg-lutein 300 mcg tablet (Centrum Silver Ultra Men's) atorvastatin 10 mg tablet 10 mg PO HS 08/04/24 11/02/24 History finasteride 5 mg tablet (Proscar) 5 mg PO QAM 08/04/24 11/02/24 History tamsulosin 0.4 mg capsule 0.4 mg PO QAM 08/04/24 11/02/24 History umeclidinium 62.5 mcg-vilanterol 1 inh inhalation QAM 08/04/24 11/02/24 History 25 mcg/actuation powdr for inhalation (Anoro Ellipta) Past Med/Surg History Problem List (Updated 11/02/24 @ 03:44 by Gene Bear MD) Wernickes encephalopathy Urinary tract infection Confusion and disorientation MCI (mild cognitive impairment) Urethral stricture Abnormal gait BPH NOS w ur obs/LUTS Incomplete emptying of bladder Macrocytosis Alcohol dependence Chronic cough Exertional shortness of breath Vitamin D deficiency Hyperlipidemia Insomnia Transitional cell bladder cancer (~2007) Prostate cancer (02/27/15) "History of bladder CA diagnosed 09/30/2007 recheck cystoscopies with fulguration negative since 2010 Rising PSA, pretreatment PSA 6.87, biopsy stage T2a Status post ultrasound-guided biopsy revealing adenocarcinoma the prostate Leeson 3+3 Prostate volume 24.1 Prostate density 0.285" On 03/14/15 10:43 Agueda Pinto wrote "History of bladder CA diagnosed 09/30/2007 recheck cystoscopies with fulguration negative since 2010 Rising PSA, pretreatment PSA 6.87 Status post ultrasound-guided biopsy revealing adenocarcinoma the prostate L eeson 3+3 Prostate volume 24.1 Prostate density 0.285" Medical History Cognitive and behavioral changes - per friend/POA - Trevor Montalvo. patient is alert and oriented most times. 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 GERD (gastroesophageal reflux disease) POA/friend unsure of current issues Aortic atherosclerosis mild calcified plaque to thoracic aorta per [address] Surgical History History of tooth extraction all teeth removed Hx of cystoscopy with fulgeration in the office H/O transurethral resection of bladder tumor (TURBT) hx? H/O colonoscopy Family History Other No pertinent family history Unobtainable family history due to adoption Social History Smoking Status: Former smoker Tobacco Type: Cigarettes Age Started Using Tobacco: 13; Age Quit Using Tobacco: 67; packs per day: 7; Cigarettes Per Day: hx heavy smoking history; Second Hand Exposure: No; Do You Dip or Chew Tobacco: No; Hx Alcohol Use: No Hx Substance Use: No Preferred Language: Slovenian Communication Ability: Effective Communication Ability Comment: patient has memory loss, has appt with pcp in the near future Visual Impairment: Limited Hearing Ability: Normal Packing And Final Assembly Supervisor Required: No Beliefs That Will Affect Care: None marital status: Single Current Living Situation: Alone current occupational status: retired How many Children do You have: 0 Other Information That Helps Us Care for You: No Feels Safe at Home: Yes Safety Concerns: Feels Safe At This Time Childhood Exposure to Second-Hand Smoke: No Diet: regular caffeine: Yes Dental Care, Regularly: No Physical Activity Frequency: Does not Exercise Seatbelt Use: always Sunscreen Use: No Assistive Devices: None Review of Systems Review of Systems: The patient denies chest pain, palpitations, shortness of breath, dyspnea on exertion, cough, lower extremity swelling, sore throat, fevers, chills, sweats, nausea, vomiting, diarrhea , constipation, abdominal pain, pelvic pain, blood in urine or stool, dysuria, urinary frequency or urgency, lightheadedness, dizziness, headache, loss of consciousness, rash, abnormal bruising or bleeding, focal weakness, numbness or tingling in arms or legs, generalized arthralgias or myalgias, back or neck pain, or night sweats. The review of systems is otherwise negative other than for that already noted above, and at least 10 systems have been reviewed. Physical Exam Physical Exam: The patient is awake, mildly confused, well developed and well nourished, normocephalic and atraumatic, lying in bed and in no acute distress. HEENT--PERRL, EOMI, mucous membranes and oropharynx mildly dry. Neck--supple. No JVD. No bruits. Thyroid normal, trachea midline, no adenopathy. Heart--normal S1 and S2. No murmurs, rubs or gallops. Lungs--clear bilaterally, no respiratory distress, no accessory muscle use. Abdomen--normal bowel sounds and soft. Nontender. Nondistended, no hernias or masses, no organomegaly. Extremities--no cyanosis or clubbing. No edema. There are good distal pulses b/l. Dermatologic--normal skin turgor, normal color, no abnormal lymph nodes, no rash. Neurologic--cranial nerves II through XII grossly intact. Rheumatologic--normal range of motion. Psychiatric--normal affect. Results & Data Results & Data Vital Signs (Past 12 Hours) Vital Signs Temp Pulse Pulse Resp BP BP Pulse Ox 11/02/24 01:06 36.6 C 86 18 97 11/01/24 23:20 108 H 18 97 11/01/24 23:19 109 H 11/01/24 23:18 108 H 18 97 11/01/24 23:18 38.8 C H 108 H 18 125/62 97 11/01/24 23:18 89 L 11/01/24 23:18 38.8 C H 108 H 18 125/62 97 O2 Del Method O2 Flow Rate 11/02/24 01:06 Nasal Cannula 2 11/01/24 23:20 Nasal Cannula 2 11/01/24 23:19 11/01/24 23:18 Nasal Cannula 2 11/01/24 23:18 Nasal Cannula 2 11/01/24 23:18 Room Air 11/01/24 23:18 Nasal Cannula 2 Laboratory Results Laboratory Results WBC 11.69 K/ul (4.8-10.8) H 11/01/24 23:24 RBC 4.18 M/uL (4.70-6.10) L 11/01/24 23:24 Hgb 15.0 g/dl (14.0-18.0) 11/01/24 23:24 Hct 44.3 % (42.0-52.0) 11/01/24 23:24 MCV 106.0 fL (80.0-100.0) H 11/01/24 23:24 MCH 35.9 pg (25.0-34.0) H 11/01/24 23:24 MCHC 33.9 g/dL (32.0-36.0) 11/01/24 23: RDW Std Deviation 57.2 fL (36.4-46.3) H 11/01/24: RDW Coeff of Mary 14.6 % (11.5-14.5) H 11/01/24 23: Plt Count 154 K/uL (130-400) 11/01/24 23: MPV 10.0 fL (9.4-12.4) 11/01/24 23: Immature Gran % (Auto) 0.5 % 11/01/24 23: Neut % (Auto) 76.3 % 11/01/24 23:24 Lymph % (Auto) 8.0 % 11/01/24 23:24 Starke % (Auto) 14.9 % 11/01/24 23:24 Eos % (Auto) 0.0 % 11/01/24 23: Baso % (Auto) 0.3 % 11/01/24 23:24 Neut # (Auto) 8.92 K/uL (1.40-6.50) H 11/01/24 23:24 Lymph # (Auto) 0.93 K/uL (1.20-3.40) L 11/01/24 23:24 Starke # (Auto) 1.74 K/uL (0.11-0.59) H 11/01/24 23:24 Eos # (Auto) 0.00 K/uL (0.00-0.50) 11/01/24 23:24 Baso # (Auto) 0.04 K/uL (0.00-0.20) 11/01/24 23:24 Immature Gran # (Auto) 0.06 K/uL (0.01-0.20) 11/01/24 23:24 Sodium 138 mmol/L (136-145) 11/01/24 23:24 Potassium 4.0 mmol/L (3.5-5.1) 11/01/24 23:24 Chloride 105 mmol/L (98-107) 11/01/24 23:24 Carbon Dioxide 23 mmol/L (21-32) 11/01/24 23:24 Anion Gap 10 (3-11) 11/01/24 23:24 BUN 29 mg/dl (6-23) H 11/01/24 23:24 Creatinine 1.34 mg/dl (0.6-1.4) 11/01/24 23:24 Est Cr Clr Drug Dosing 45.6 ml/min 11/01/24 23:24 eGFR 52.24 11/01/24 23:24 BUN/Creatinine Ratio 21.6 (10-20) H 11/01/24 23:24 Glucose 160 mg/dl (70-99(Fasting)) H 11/01/24 23:24 Lactate 0.8 mmol/L (0.4-2.0) 11/02/24 01:02 Calcium 9.6 mg/dl (8.6-10.3) 11/01/24 23:24 Magnesium 2.0 mg/dl (1.7-2.4) 11/01/24 23:24 Total Bilirubin 0.9 mg/dl (0.2-1.0) 11/01/24 23:24 AST 60 U/L (13-39) H 11/01/24 23:24 ALT 19 U/L (7-52) 11/01/24 23:24 Alkaline Phosphatase 54 U/L (34-104) 11/01/24 23:24 Total Protein 7.4 gm/dl (6.0-8.3) 11/01/24 23:24 Albumin 4.2 gm/dl (3.4-5.0) 11/01/24 23:24 Globulin 3.2 gm/dl (2.5-4.0) 11/01/24 23:24 Albumin/Globulin Ratio 1.3 (0.9-2) 11/01/24 23:24 Procalcitonin 0.38 ng/ml (0-0.5) 11/01/24 23:24 TSH 1.912 uIu/ml (0.300-4.500) 11/01/24 23:24 Urine Color Yellow 11/02/24 00:34 Urine Appearance Clear (Clear) 11/02/24 00:34 Urine pH 5.5 (4.5-7.5) 11/02/24 00:34 Ur Specific Bowers 1.022 (1.000-1.030) 11/02/24 00:34 Urine Protein 2+ (Negative) H 11/02/24 00:34 Urine Glucose (UA) Negative (Negative) 11/02/24 00:34 Urine Ketones 2+ (Negative) H 11/02/24 00:34 Urine Blood 2+ (Negative) H 11/02/24 00:34 Urine Nitrite Negative (Negative) 11/02/24 00:34 Urine Bilirubin Negative (Negative) 11/02/24 00:34 Urine Urobilinogen Negative (Negative) 11/02/24 00:34 Ur Leukocyte Esterase Trace (Negative) H 11/02/24 00:34 Urine WBC (Auto) 0-5 /hpf (0-5) 11/02/24 00:34 Urine RBC (Auto) 3-5 /hpf (0-2) H 11/02/24 00:34 U Hyaline Cast (Auto) 3-5 /lpf (0-2) H 11/02/24 00:34 U Epithel Cells (Auto) 0-2 /hpf (0-2) 11/02/24 00:34 Urine Bacteria (Auto) None Seen (None Seen) 11/02/24 00:34 Ethyl Alcohol mg/dL < 10.0 mg/dl (<10.0) 11/01/24 23:24 Adenovirus (PCR) Not Detected (NotDetected) 11/01/24 23:39 B. pertussis DNA (PCR) Not Detected (NotDetected) 11/01/24 23:39 B.parapertussis DNA PCR Not Detected (NotDetected) 11/01/24 23:39 C. pneumoniae DNA (PCR) Not Detected (NotDetected) 11/01/24 23:39 Coronavirus OC43 (PCR) Not Detected (NotDetected) 11/01/24 23:39 Coronavirus HKU1 (PCR) Not Detected (NotDetected) 11/01/24 23:39 Coronavirus 229E (PCR) Not Detected (NotDetected) 11/01/24 23:39 SARS-CoV-2 (PCR) Not Detected (NotDetected) 11/01/24 23:39 Coronavirus NL63 (PCR) Not Detected (NotDetected) 11/01/24 23:39 Human Metapneumovir PCR Not Detected (NotDetected) 11/01/24 23:39 Influenza Type A (PCR) Not Detected (NotDetected) 11/01/24 23:39 Influenza Type B (PCR) Not Detected (NotDetected) 03 23:39 M. pneumoniae (PCR) Not Detected (NotDetected) 11/01/24 23:39 Parainfluenza 1 (PCR) Not Detected (NotDetected) 11/01/24 23:39 Parainfluenza 2 (PCR) Not Detected (NotDetected) 11/01/24 23:39 Parainfluenza 3 (PCR) Not Detected (NotDetected) 11/01/24 23:39 Parainfluenza 4 (PCR) Not Detected (NotDetected) 11/01/24 23:39 RSV (PCR) Not Detected (NotDetected) 11/01/24 23:39 Entero/Rhino (PCR) Not Detected (NotDetected) 11/01/24 23:[address] 11/01/24 23:25 Exam(s): CT HEAD Without Contrast EXAM: CT Head Without Intravenous Contrast CLINICAL HISTORY: AMS. TECHNIQUE: Axial computed tomography images of the head/brain without intravenous contrast. CTDI is 38.78 mGy and DLP is 625.8 mGy-cm. Automated exposure control was utilized for the study. A dose lowering technique was utilized adhering to the principles of ALARA. COMPARISON: No relevant prior studies available. FINDINGS: Brain: Age-appropriate generalized atrophy. No acute stroke. 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 Mild supratentorial periventricular and subcortical white matter changes. No acute hemorrhage or abnormal extra-axial fluid collection. Ventricles: No hydrocephalus. No midline shift. Bones/joints: Unremarkable. No acute fracture. Soft tissues: Unremarkable. Sinuses: Unremarkable as visualized. No acute sinusitis. IMPRESSION: No acute stroke or hemorrhage. 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 Non-specific white matter changes, most commonly seen with small vessel disease. Electronically signed by: Neftali Campbell M.D. 11/02/24 00:45 AM Code Status & VTE Plan Code Status Full code VTE Prophylaxis Plan VTE Prophylaxis will be ordered: Yes PG Care Time/CCT Total # of Minutes Spent Total Time Spent with Patient: Total time spent is greater than 50% in coordination of care (as documented) at patient's floor/unit and/or counseling patient: Coding Level of Care Code 10042 INT INP/OBS CARE 3/75MIN Diagnoses Confusion and disorientation R41.0 Alcohol dependence F10.20 Urinary tract infection N39.0 Wernickes encephalopathy E51.2 Prostate cancer C61 Transitional cell bladder cancer C67.9
[2024-11-02] MEDS ORDERED: LORazepam 2 MG/1 ML VIAL IV PRN (02:46)
[2024-11-02] MEDS ORDERED: ACETAMINOPHEN 325 MG TAB PO PRN (02:46)
[2024-11-02] MEDS ORDERED: Ativan IV Alcohol Withdrawal--Active Protocol IV PRN (02:46)
--- NOTE | 2024-11-02 07:41 | XRay Report ---
EXAM: XR chest 1V portable CLINICAL HISTORY: weakness TECHNIQUE: An X-ray image of the chest is obtained in AP projection. COMPARISON: 08/01/2024. FINDINGS: Pulmonary Parenchyma: Stable non-specific mildly prominent bilateral bronchovascular markings. No evidence of consolidation, collapse, or focal opacities. No pulmonary nodules are identified. No evidence of pleural effusion or pleural thickening. Heart and Mediastinum: Heart size and shape are normal. No mediastinal widening or masses. No hilar or mediastinal lymphadenopathy. Bony Thorax: Bony thorax appears intact without fractures or deformities. Soft Tissues: Soft tissues overlying the chest wall are unremarkable. IMPRESSION: 1. No consolidation or effusion. 2. Stable non-specific mildly prominent bilateral bronchovascular markings. 3. No interval changes. Electronically signed by Sriram Dacosta 11-02-2024 07:41 AM
[2024-11-02 08:33] LABS: Estimated Average Glucose 120 mg/dl; Hemoglobin A1C 5.8 % (4.5-5.6)
[2024-11-02] MEDS: ASPIRIN 81 MG CHEW PO SCH (09:36)
[2024-11-02] MEDS: UMECLIDINIUM/VILANTEROL 62.5/25MCG 7 PUFFS/INHALER INH SCH (09:36)
[2024-11-02] MEDS: FINASTERIDE 5 MG TAB PO SCH (09:36)
[2024-11-02] MEDS: TAMSULOSIN HCL 0.4 MG CAP PO SCH (09:36)
[2024-11-02] MEDS: THIAMINE HCL 100 MG in SYRINGE 9 ML IV SCH (09:37)
[2024-11-02] MEDS: FOLIC ACID 1 MG in SYRINGE 9.8 ML IV SCH (09:37)
--- NOTE | 2024-11-02 13:04 | Urology Consultation ---
Date of Consultation November 02, 2024 Assessment & Plan (1) Transitional cell bladder cancer: (2) Urinary tract infection: 81-year-old male with history of bladder cancer who recently started BCG induction admitted for altered mental status, fever and suspected UTI. Patient afebrile, Tmax 38.8 on arrival, hemodynamically stable Labs on arrival reviewedcreatinine 1.34, WBC 11.69, hemoglobin 15.0 Urinalysis was not overly suspicious for infection No urine culture pending Blood cultures pending Continue broad-spectrum antibiotics and narrow per sensitivity data when available No recurrent fevers since arrival Continue supportive care, antibiotics and monitoring Patient voiding spontaneously, continue to monitor Message sent to urology office to cancel his BCG treatment for tomorrow Will continue to monitor and reschedule treatment when appropriate Fever, altered mental status possibly due to UTI or other etiology, BCG sepsis in the differential No acute intervention at this time will follow, please contact our service with any additional questions, concerns or changes in status History of Present Illness Reason for Consultation: UTI s/p BCG treatment Attending Physician: Rj Mann MD History of Present Illness This is an 84-year-old male who follows with urology for bladder cancer and BPH. He underwent transurethral resection of bladder tumor on 08/11/2024 demonstrating high-grade urothelial carcinoma, noninvasive. He started induction BCG in the urology office on 10/27/2024. Patient presented to the emergency department on 11/02/2024 via EMS for evaluation of weakness and altered mental status. His friend/POA was unable to get in contact with him yesterday so he went to his home in the evening and found patient unable to get off the couch and confused. On arrival to ED, he was febrile (T38.8), tachycardic, normotensive. Labs showed WBC 11.69, hemoglobin 15.0, creatinine 1.34. Urinalysis showed 2+ blood, trace LE, 0-5 WBC, 3-5 RBC, 0-2 epithelial cells and negative for bacteria. BioFire PCR panel negative. He was treated with acetaminophen and cefepime in the emergency department. He was admitted to the hospital medicine service for further management. Urology is consulted for UTI status post BCG treatment Patient seen and examined in the emergency department. He is awake and resting in bed. Friend/POA (Trevor) in room. Patient denies pain at present. He is voiding spontaneously, denies dysuria or hematuria. He reports vomiting yesterday, but denies fever prior to arrival. Patient reports he checked on patient and found him weak and confused prompting ED evaluation. Patient denies nausea, vomiting, fever or chills at present. Allergies Allergy/AdvReac Type Severity Reaction Status Date / Time Penicillins Allergy Intermediate hives as a Verified 11/02/24 00:39 child cat dander Allergy Mild RASH Verified 11/02/24 00:39 dutasteride [From Angelica] Allergy Unknown CAN'T Verified 11/02/24 00:39 REMEMBER Home Medications Medication Instructions Recorded Confirmed Type vit C 50 mg-E 15 unit-zinc cit 4.5 2 tab PO DAILY 08/09/19 11/02/24 History mg-lutein 2.5 mg-zeaxan chew tablet (Svpply) gofaccpt-hj-omrwo 300 mcg-K 60 1 tab PO DAILY 01/14/22 11/02/24 History mcg-lycop 600 mcg-lutein 300 mcg tablet (Centrum [employer] Men's) atorvastatin 10 mg tablet 10 mg PO HS 08/04/24 11/02/24 History finasteride 5 mg tablet (Proscar) 5 mg PO QAM 08/04/24 11/02/24 History tamsulosin 0.4 mg capsule 0.4 mg PO QAM 08/04/24 11/02/24 History umeclidinium 62.5 mcg-vilanterol 1 inh inhalation QAM 08/04/24 11/02/24 History 25 mcg/actuation powdr for inhalation (Anoro Ellipta) Patient History Medical History Cognitive and behavioral changes - per friend/POA - Trevor Montalvo. patient is alert and oriented most times. 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 GERD (gastroesophageal reflux disease) POA/friend unsure of current issues Aortic atherosclerosis mild calcified plaque to thoracic aorta per [address] Surgical History History of tooth extraction all teeth removed Hx of cystoscopy with fulgeration in the office H/O transurethral resection of bladder tumor (TURBT) hx? H/O colonoscopy Family History Other No pertinent family history Unobtainable family history due to adoption Social History Smoking Status: Former smoker Tobacco Type: Cigarettes Age Started Using Tobacco: 13; Age Quit Using Tobacco: 67; packs per day: 7; Cigarettes Per Day: hx heavy smoking history; Second Hand Exposure: No; Do You Dip or Chew Tobacco: No; Hx Alcohol Use: No Hx Substance Use: No Preferred Language: Azeri Communication Ability: Effective Communication Ability Comment: patient has memory loss, has appt with pcp in the near future Visual Impairment: Limited Hearing Ability: Normal Biology Laboratory Assistant Required: No Beliefs That Will Affect Care: None marital status: Single Current Living Situation: Alone current occupational status: retired How many Children do You have: 0 Feels Safe at Home: Yes Childhood Exposure to Second-Hand Smoke: No Diet: regular caffeine: Yes Dental Care, Regularly: No Physical Activity Frequency: Does not Exercise Seatbelt Use: always Sunscreen Use: No Assistive Devices: None Review of Systems Review of Systems: All systems reviewed & are unremarkable except as noted in HPI & below Physical Exam Constitutional: well developed and well nourished; no acute distress Respiratory: normal respiratory effort; no respiratory distress and no labored breathing Gastrointestinal (Abdomen): Inspection/Auscultation: abdomen normal to inspection Musculoskeletal: Head/Neck/Chest: normocephalic Neurologic: moves all extremities and awake Psychiatric: Orientation: alert, oriented to person and cooperative Results & Data Vital Signs (Past 12 Hours) Vital Signs Temp Pulse Pulse Resp BP Pulse Ox Pulse Ox 11/02/24 12:46 11/02/24 12:44 36.8 C 82 16 121/66 94 11/02/24 11:34 89 28 H 113/61 96 11/02/24 08:00 74 22 119/54 L 100 11/02/24 07:36 68 11/02/24 06:00 74 14 121/52 L 96 11/02/24 04:00 74 14 116/63 97 11/02/24 03:00 76 18 123/60 98 11/02/24 02:46 97 11/02/24 02:46 36.7 C 81 18 111/51 L 97 11/02/24 02:35 11/02/24 02:35 81 18 97 11/02/24 01:06 36.6 C 86 18 97 O2 Del Method O2 Del Method O2 Flow Rate O2 Flow Rate 11/02/24 12:46 Room Air 11/02/24 12:44 Room Air 11/02/24 11:34 Nasal Cannula 2 11/02/24 08:00 Room Air 11/02/24 07:36 11/02/24 06:00 Nasal Cannula 1 11/02/24 04:00 Nasal Cannula 1 11/02/24 03:00 Nasal Cannula 1 11/02/24 02:46 Nasal Cannula 2 11/02/24 02:46 Nasal Cannula 2 11/02/24 02:35 Nasal Cannula 2 11/02/24 02:35 Nasal Cannula 2 11/02/24 01:06 Nasal Cannula 2 PG Care Time/CCT Total # of Minutes Spent Total Time Spent with Patient: Total time spent is greater than 50% in coordination of care (as documented) at patient's floor/unit and/or counseling patient: Coding Level of Care Code 02471 INT INP/OBS CARE 2/55MIN Diagnoses Transitional cell bladder cancer C67.9 Urinary tract infection N39.0
[2024-11-02] MEDS: ATORVASTATIN 10 MG TAB PO SCH (20:25)
[2024-11-02] MEDS: LORazepam 2 MG/1 ML VIAL IV PRN (20:37)
[2024-11-03] MEDS: LORazepam 2 MG/1 ML VIAL IV PRN (01:06)
[2024-11-03] MEDS: MELATONIN 3 MG TAB PO STA (03:46)
--- NOTE | 2024-11-03 06:42 | Electrocardiogram Report ---
Test Reason : Blood Pressure : */* mmHG Vent. Rate : 109 BPM Atrial Rate : 109 BPM P-R Int : 142 ms QRS Dur : 88 ms QT Int : 322 ms P-R-T Axes : 61 64 71 degrees QTcB Int : 433 ms Sinus tachycardia Otherwise normal ECG When compared with ECG of 01-Aug-2024 10:27, No significant change was found Confirmed by Jeff Oliver ([id number]) on 11/03/2024 6:41:22 AM Referred By: REFERRED SELF Confirmed By: Jeff Oliver
--- NOTE | 2024-11-03 07:50 | Urology Progress Note ---
<Statement entered by Pierce Edgar MD - 11/03/24 15:27> 84-year-old male admitted for altered mental status, concern for possible infection. Urine and blood cultures negative so far and he remains afebrile/hemodynamically stable. He has been getting BCG as an outpatient, however in the absence of recurrent fevers, I have low suspicion for BCG sepsis. No plan for urologic intervention at this point. Urology will follow along. Date of Service November 03, 2024 Assessment & Plan (1) Transitional cell bladder cancer: (2) Urinary tract infection: Plan: 81-year-old male with history of bladder cancer who recently started BCG ind uction admitted for altered mental status, fever and suspected UTI. Patient remains afebrile, hemodynamically stable No new labs at time of visit Urinalysis was not overly suspicious for infection No urine culture pending Blood cultures with no growth x 24 hours Continue broad-spectrum antibiotics and narrow per sensitivity data when available No recurrent fevers since arrival Continue supportive care, antibiotics and monitoring Patient voiding spontaneously, continue to monitor emptying, bladder scan as needed His outpatient BCG treatment was canceled for today, will continue to monitor and reschedule treatment when appropriate No acute intervention at this time If worsening or no improvement, recommend send urine culture and perform CT imaging will follow, please contact our service with any additional questions, concerns or changes in status Admission and Anticipated Discharge Date Admission Date: November 02, 2024 Subjective Patient seen and examined at bedside this morning. He is confused, pleasant. Denies fever or chills. Voiding spontaneously, no dysuria. Denies pain at present. Review of Systems Constitutional: as per Subjective / HPI Genitourinary: + as per Subjective / HPI Physical Exam Constitutional: well developed and well nourished; no acute distress Respiratory: normal respiratory effort; no respiratory distress and no labored breathing Gastrointestinal (Abdomen): Inspection/Auscultation: abdomen normal to inspection Musculoskeletal: Head/Neck/Chest: normocephalic Neurologic: moves all extremities and awake Psychiatric: Orientation: alert and cooperative Results & Data Vital Signs (Past 12 Hours) Vital Signs Temp Pulse Pulse Resp BP Pulse Ox O2 Del Method 11/03/24 02:54 84 11/03/24 02:04 37.0 C 94 H 20 150/79 H 95 Room Air 11/03/24 00:50 36.8 C 87 20 132/64 93 Room Air 11/02/24 23:18 36.7 C 89 20 138/78 97 Room Air 11/02/24 19:54 36.7 C 83 20 104/61 95 Room Air PG Care Time/CCT Total # of Minutes Spent Total Time Spent with Patient: Total time spent is greater than 50% in coordination of care (as documented) at patient's floor/unit and/or counseling patient: Coding Level of Care Code 50657 SUB INP/OBS CARE 09/17MIN Diagnoses Transitional cell bladder cancer C67.9 Urinary tract infection N39.0
--- NOTE | 2024-11-03 09:45 | Hospitalist Progress Note ---
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- CT scan with also showing chronic small vessel disease Aspirin 81 mg daily (2) Alcohol dependence: Plan: -CIWA protocol -ativan prn (3) Urinary tract infection: Plan: -cefepime -f/u C&S (4) Wernickes encephalopathy: Plan: Thiamine 100 mg IV daily Folic acid 1 mg IV daily (5) Prostate cancer: (6) Transitional cell bladder cancer: Plan The patient is an 84-year-old male with past medical history including mild cognitive impairment, urethral stricture, BPH with LUTS, incomplete bladder emptying, alcohol dependence, vit D deficiency, hyperlipidemia, insomnia, t ransitional bladder cell cancer, and prostate cancer.Patient is brought to the emergency department after his friend who checks on him regularly, found him in a more disheveled state than usual., Lying on the sofa in his home, and unable to get up on his own. His friend reports that he usually checks him on a daily basis, had not seen him yesterday, but did become concerned when he tried to call his friend this evening, and Mr. Thomas did not respond. Mr. Thomas has been undergoing weekly BCG intravesical injections, and his most recent was on Thursday, 4 days ago. The patient was brought to the emergency department for evaluation, was found to be weak, able to respond to questions but slowed, and was referred for evaluation for admission to the [facility]. Workup in the emergency department included a chest x-ray which was negative, and CT scan of head without contrast which showed a small right basal ganglia infarct and chronic small vessel disease. From the emergency department, patient received Tylenol 1 g IV, and cefepime 2 g IV. PT/OT consults pending Admission and Anticipated Discharge Date Admission Date: November 02, 2024 Subjective No events overnight. Pt resting comfortably in bed. Review of Systems Review of Systems: CONST: Negative for fever, body aches and chills. HENT: Negative for neck pain/stiffness, headache, congestion, sore throat, swelling. EYES: Negative for discharge/pain or vision changes. RESP: Negative for cough/hemoptysis and shortness of breath. CV: Negative chest pain, difficulty breathing, palpitations. ABD: Negative pain, nausea, vomiting. : Negative increase frequency, dysuria, blood in urine or stool. MUSC: Negative for muscle aches, edema. SKIN: Negative rash, lesions/sores. NEURO: Negative headache, dizziness, weakness. Physical Exam Physical Exam: GENERAL APPEARANCE NAD, activity normal for age, well developed/ well nourished, no cyanosis, pallor, or diaphoresis. EYES lids/conjunctiva normal. EARS/NOSE/THROAT Mucous membranes moist, nares normal, lips/teeth normal uvula midline without oral pharyngeal erythema, exudate or swelling TMs normal bilaterally. No lymphangitis/lymphedema. HEAD/NECK normocephalic atraumatic, no facial trauma, neck is supple. RESPIRATORY respiratory effort normal, speaks in full sentences, no tripod position, no accessory muscle use. Lungs clear to auscultation without rhonchi, wheezes, rales CARDIAC Regular rate and rhythm, no edema. ABDOMINAL Soft, ND/NT. No evidence of fluid wave. No pulsatile masses on exam, rebound tenderness, Roa sign or pain over Mcburney's point. MUSCLES/EXTREMITIES No abnormal range of motion, no swelling. SKIN Warm, pink and dry. No rashes, dermatoses, petechiae or lesions. NEUROLOGICAL Speech is clear and appropriate. Normal level of consciousness. Gait and coordination are normal. 5/5 strength in all extremities. PSYCH Normal mood and affect. Judgement/competence is appropriate Results & Data Results & Data Vital Signs (Past 12 Hours) Vital Signs Temp Pulse Pulse Resp BP BP Pulse Ox 11/03/24 07:59 36.4 C L 89 16 126/73 97 11/03/24 02:54 84 11/03/24 02:04 37.0 C 94 H 20 150/79 H 95 11/03/24 00:50 36.8 C 87 20 132/64 93 11/02/24 23:18 36.7 C 89 20 138/78 97 O2 Del Method 11/03/24 07:59 Room Air 11/03/24 02:54 11/03/24 02:04 Room Air 03/13/25 00:50 Room Air 11/02/24 23:18 Room Air PG Care Time/CCT Total # of Minutes Spent Total Time Spent with Patient: Total time spent is greater than 50% in coordination of care (as documented) at patient's floor/unit and/or counseling patient: Coding Level of Care Code 81430 SUB INP/OBS CARE 2/35MIN Diagnoses Confusion and disorientation R41.0 Alcohol dependence F10.20 Urinary tract infection N39.0 Wernickes encephalopathy E51.2 Prostate cancer C61 Transitional cell bladder cancer C67.9
[2024-11-03] MEDS: MELATONIN 3 MG TAB PO PRN (21:10)
--- NOTE | 2024-11-04 10:13 | Hospitalist Progress Note ---
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 (2) Alcohol dependence: Plan: -CIWA protocol -ativan prn (3) Urinary tract infection: Plan: -cefepime -f/u C&S (4) Wernickes encephalopathy: Plan: Thiamine 100 mg IV daily Folic acid 1 mg IV daily (5) Prostate cancer: (6) Transitional cell bladder cancer: Plan The patient is an 84-year-old male with past medical history including mild cognitive impairment, urethral stricture, BPH with LUTS, incomplete bladder emptying, alcohol dependence, vit D deficiency, hyperlipidemia, insomnia, transitional bladder cell cancer, and prostate cancer.Patient is brought to the emergency department after his friend who checks on him regularly, found him in a more disheveled state than usual., Lying on the sofa in his home, and unable to get up on his own. His friend reports that he usually checks him on a daily basis, had not seen him yesterday, but did become concerned when he tried to call his friend this evening, and Mr. Thomas did not respond. Mr. Thomas has been undergoing weekly BCG intravesical injections, and his most recent was on Thursday, 4 days ago. The patient was brought to the emergency department for evaluation, was found to be weak, able to respond to questions but slowed, and [facility] Workup in the emergency department included a chest x-ray which was negative, and CT scan of head without contrast which showed a small right basal ganglia infarct and chronic small vessel disease. From the emergency department, patient received Tylenol 1 g IV, and cefepime 2 g IV. PT/OT consults pending Admission and Anticipated Discharge Date Admission Date: November 04, 2024 Subjective Pt awake this am, eating breakfast and answering questions appropriately. Review of Systems Review of Systems: CONST: Negative for fever, body aches and chills. HENT: Negative for neck pain/stiffness, headache, congestion, sore throat, swelling. EYES: Negative for discharge/pain or vision changes. RESP: Negative for cough/hemoptysis and shortness of breath. CV: Negative chest pain, difficulty breathing, palpitations. ABD: Negative pain, nausea, vomiting. : Negative increase frequency, dysuria, blood in urine or stool. MUSC: Negative for muscle aches, edema. SKIN: Negative rash, lesions/sores. NEURO: Negative headache, dizziness, weakness. Physical Exam Physical Exam: GENERAL APPEARANCE NAD, activity normal for age, well developed/ well nourished, no cyanosis, pallor, or diaphoresis. EYES lids/conjunctiva normal. EARS/NOSE/THROAT Mucous membranes moist, nares normal, lips/teeth normal uvula midline without oral pharyngeal erythema, exudate or swelling TMs normal bilaterally. No lymphangitis/lymphedema. HEAD/NECK normocephalic atraumatic, no facial trauma, neck is supple. RESPIRATORY respiratory effort normal, speaks in full sentences, no tripod position, no accessory muscle use. Lungs clear to auscultation without rhonchi, wheezes, rales CARDIAC Regular rate and rhythm, no edema. ABDOMINAL Soft, ND/NT. No evidence of fluid wave. No pulsatile masses on exam, rebound tenderness, Roa sign or pain over Mcburney's point. MUSCLES/EXTREMITIES No abnormal range of motion, no swelling. SKIN Warm, pink and dry. No rashes, dermatoses, petechiae or lesions. NEUROLOGICAL Speech is clear and appropriate. Normal level of consciousness. Gait and coordination are normal. 5/5 strength in all extremities. PSYCH Normal mood and affect. Judgement/competence is appropriate Results & Data Results & Data Vital Signs (Past 12 Hours) Vital Signs Temp Pulse Pulse Resp BP BP Pulse Ox 11/04/24 09:06 36.4 C L 81 18 93/59 L 93 11/04/24 07:04 71 11/04/24 01:22 78 11/03/24 23:50 36.9 C 85 20 102/64 94 O2 Del Method 11/04/24 09:06 Room Air 11/04/24 07:04 11/04/24 01:22 11/03/24 23:50 Room Air PG Care Time/CCT Total # of Minutes Spent Total Time Spent with Patient: Total time spent is greater than 50% in coordination of care (as documented) at patient's floor/unit and/or counseling patient: Coding Level of Care Code 55784 SUB INP/OBS CARE MIN Diagnoses Confusion and disorientation R41.0 Alcohol dependence F10.20 Urinary tract infection N39.0 Wernickes encephalopathy E51.2 Prostate cancer C61 Transitional cell bladder cancer C67.9
--- NOTE | 2024-11-04 12:55 | Urology Progress Note ---
Date of Service November 04, 2024 Assessment & Plan (1) Transitional cell bladder cancer: (2) Urinary tract infection: Plan: 81-year-old male with history of bladder cancer who recently started BCG induction admitted for altered mental status, fever and suspected UTI. Patient remains afebrile, hemodynamically stable WBC trended down, 5.96 today Urinalysis on admission was not overly suspicious for infection Blood cultures with no growth x 48 hours Continue broad-spectrum antibiotics and narrow per sensitivity data when available No recurrent fevers since arrival Continue supportive care, antibiotics and monitoring Patient voiding spontaneously, continue to monitor emptying, bladder scan as needed His outpatient BCG treatment was canceled this week, will continue to monitor and likely keep on schedule for next week if he continues to improve No acute intervention at this time If worsening or no improvement, recommend send urine culture and perform CT imaging follow peripherally, please contact our service with any additional questions or concerns Admission and Anticipated Discharge Date Admission Date: November 04, 2024 Subjective Patient seen and examined at bedside this afternoon. He is awake and sitting up in chair eating lunch. Trevor (friend) at bedside. Patient denies fever or chills. No nausea or vomiting. Voiding spontaneously. Review of Systems Constitutional: as per Subjective / HPI Genitourinary: + as per Subjective / HPI Physical Exam Constitutional: well developed and well nourished; no acute distress Respiratory: normal respiratory effort; no respiratory distress and no labored breathing Gastrointestinal (Abdomen): Inspection/Auscultation: abdomen normal to inspection Musculoskeletal: Head/Neck/Chest: normocephalic Neurologic: moves all extremities and awake Psychiatric: Orientation: alert, oriented to person and cooperative Results & Data Vital Signs (Past 12 Hours) Vital Signs Temp Pulse Pulse Resp BP BP Pulse Ox 11/04/24 11:32 36.6 C 94 H 18 85/56 L 94/63 L 94 11/04/24 09:06 36.4 C L 81 18 93/59 L 93 11/04/24 08:25 11/04/24 07:04 71 11/04/24 01:22 78 O2 Del Method 11/04/24 11:32 Room Air 11/04/24 09:06 Room Air 11/04/24 08:25 Room Air 11/04/24 07:04 11/04/24 01:22 PG Care Time/CCT Total # of Minutes Spent Total Time Spent with Patient: Total time spent is greater than 50% in coordination of care (as documented) at patient's floor/unit and/or counseling patient: Coding Level of Care Code 80981 SUB INP/OBS CARE Diagnoses Transitional cell bladder cancer C67.9 Urinary tract infection N39.0
[2024-11-04 13:19] LABS: Hematocrit (blood only) 40.5 % (42.0-52.0); Hemoglobin 13.9 g/dl (14.0-18.0); Mean Corpuscular Hemoglobin 35.8 pg (25.0-34.0); Mean Corpuscular Hgb Conc 34.3 g/dL (32.0-36.0); Mean Corpuscular Volume 104.4 fL (80.0-100.0); Platelet Count 186 K/uL (130-400); RDW Coefficient of Variation 14.1 % (11.5-14.5); RDW Standard Deviation 54.4 fL (36.4-46.3); Red Blood Count 3.88 M/uL (4.70-6.10); White Blood Count 5.96 K/ul (4.8-10.8)
[2024-11-04 13:36] LABS: Calcium 9.3 mg/dl (8.6-10.3); Creatinine Clr Calc Pharmacy 49.6 ml/min; Potassium 3.8 mmol/L (3.5-5.1)
--- NOTE | 2024-11-05 09:05 | Hospitalist Progress Note ---
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 (2) Alcohol dependence: Plan: -CIWA protocol -ativan prn (3) Urinary tract infection: Plan: -cefepime -f/u C&S negative so far -urology consult appreciated, h/o of bladder ca (4) Wernickes encephalopathy: Plan: Thiamine 100 mg IV daily Folic acid 1 mg IV daily (5) Prostate cancer: (6) Transitional cell bladder cancer: Plan: -Urology consult appreciated. Plan The patient is an 84-year-old male with past medical history including mild cognitive impairment, urethral stricture, BPH with LUTS, incomplete bladder emptying, alcohol dependence, vit D deficiency, hyperlipidemia, insomnia, transitional bladder cell cancer, and prostate cancer.Patient is brought to the emergency department after his friend who checks on him regularly, found him in a more disheveled state than usual., Lying on the sofa in his home, and unable to get up on his own. His friend reports that he usually checks him on a daily basis, had not seen him yesterday, but did become concerned when he tried to call his friend this evening, and Mr. Thomas did not respond. Mr. Thomas has been undergoing weekly BCG intravesical injections, and his most recent was on Thursday, 4 days ago. The patient was brought to the emergency department for evaluation, was found to be weak, able to respond to questions but slowed, and was referred for evaluation for admission to the [facility]. Workup in the emergency department included a chest x-ray which was negative, and CT scan of head without contrast which showed a small right basal ganglia infarct and chronic small vessel disease. From the emergency department, patient received Tylenol 1 g IV, and cefepime 2 g IV. PT/OT recommending rehab placement upon discharge Admission and Anticipated Discharge Date Admission Date: November 04, 2024 Subjective No events overnight. Pt resting comfortably in bed. Awake and interactive. Review of Systems Review of Systems: CONST: Negative for fever, body aches and chills. HENT: Negative for neck pain/stiffness, headache, congestion, sore throat, swelling. EYES: Negative for discharge/pain or vision changes. RESP: Negative for cough/hemoptysis and shortness of breath. CV: Negative chest pain, difficulty breathing, palpitations. ABD: Negative pain, nausea, vomiting. : Negative increase frequency, dysuria, blood in urine or stool. MUSC: Negative for muscle aches, edema. SKIN: Negative rash, lesions/sores. NEURO: Negative headache, dizziness, weakness. Physical Exam Physical Exam: GENERAL APPEARANCE NAD, activity normal for age, well developed/ well nourished, no cyanosis, pallor, or diaphoresis. EYES lids/conjunctiva normal. EARS/NOSE/THROAT Mucous membranes moist, nares normal, lips/teeth normal uvula midline without oral pharyngeal erythema, exudate or swelling TMs normal bilaterally. No lymphangitis/lymphedema. HEAD/NECK normocephalic atraumatic, no facial trauma, neck is supple. RESPIRATORY respiratory effort normal, speaks in full sentences, no tripod position, no accessory muscle use. Lungs clear to auscultation without rhonchi, wheezes, rales CARDIAC Regular rate and rhythm, no edema. ABDOMINAL Soft, ND/NT. No evidence of fluid wave. No pulsatile masses on exam, rebound tenderness, Roa sign or pain over Mcburney's point. MUSCLES/EXTREMITIES No abnormal range of motion, no swelling. SKIN Warm, pink and dry. No rashes, dermatoses, petechiae or lesions. NEUROLOGICAL Speech is clear and appropriate. Normal level of consciousness. Gait and coordination are normal. 5/5 strength in all extremities. PSYCH Normal mood and affect. Judgement/competence is appropriate Results & Data Results & Data Vital Signs (Past 12 Hours) Vital Signs Temp Pulse Pulse Resp BP BP Pulse Ox 11/05/24 07:50 36.6 C 72 16 105/60 94 11/05/24 07:11 68 11/05/24 04:00 36.5 C 76 18 106/65 96 11/04/24 22:51 36.7 C 81 18 113/64 93 11/04/24 22:05 71 O2 Del Method 11/05/24 07:50 Room Air 11/05/24 07:11 11/05/24 04:00 Room Air 11/04/24 22:51 Room Air 11/04/24 22:05 PG Care Time/CCT Total # of Minutes Spent Total Time Spent with Patient: Total time spent is greater than 50% in coordination of care (as documented) at patient's floor/unit and/or counseling patient: Coding Level of Care Code 93713 SUB INP/OBS CARE 2/35MIN Diagnoses Confusion and disorientation R41.0 Alcohol dependence F10.20 Urinary tract infection N39.0 Wernickes encephalopathy E51.2 Prostate cancer C61 Transitional cell bladder cancer C67.9
--- NOTE | 2024-11-06 10:22 | Hospitalist Progress Note ---
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 Will need rehab placement upon d/c (2) Alcohol dependence: Plan: -CIWA protocol -ativan prn -patient appears at baseline not showing further signs of withdrawal (3) Urinary tract infection: Plan: -cefepime -f/u C&S negative so far -urology consult appreciated, h/o of bladder ca -abx discontinued (4) Wernickes encephalopathy: Plan: Thiamine 100 mg IV daily Folic acid 1 mg IV daily (5) Prostate cancer: (6) Transitional cell bladder cancer: Plan: -Urology consult appreciated. Plan The patient is an 84-year-old male with past medical history including mild cognitive impairment, urethral stricture, BPH with LUTS, incomplete bladder emptying, alcohol dependence, vit D deficiency, hyperlipidemia, insomnia, transitional bladder cell cancer, and prostate cancer.Patient is brought to the emergency department after his friend who checks on him regularly, found him in a more disheveled state than usual., Lying on the sofa in his home, and unable to get up on his own. His friend reports that he usually checks him on a daily basis, had not seen him yesterday, but did become concerned when he tried to call his friend this evening, and Mr. Tohmas did not respond. Mr. Thomas has been undergoing weekly BCG intravesical injections, and his most recent was on Thursday, 4 days ago. The patient was brought to the emergency department for evaluation, was found to be weak, able to respond to questions but slowed, and [facility] Workup in the emergency department included a chest x-ray which was negative, and CT scan of head without contrast which showed a small right basal ganglia infarct and chronic small vessel disease. From the emergency department, patient received Tylenol 1 g IV, and cefepime 2 g IV. Pt medically stable for discharge. PT/OT recommending rehab placement upon discharge. Awaiting arrangement by case management 11/07. Admission and Anticipated Discharge Date Admission Date: November 04, 2024 Subjective No events overnight. Pt resting comfortably in bed. Awake with no complaints. Review of Systems Review of Systems: CONST: Negative for fever, body aches and chills. HENT: Negative for neck pain/stiffness, headache, congestion, sore throat, swelling. EYES: Negative for discharge/pain or vision changes. RESP: Negative for cough/hemoptysis and shortness of breath. CV: Negative chest pain, difficulty breathing, palpitations. ABD: Negative pain, nausea, vomiting. : Negative increase frequency, dysuria, blood in urine or stool. MUSC: Negative for muscle aches, edema. SKIN: Negative rash, lesions/sores. NEURO: Negative headache, dizziness, weakness. Physical Exam Physical Exam: GENERAL APPEARANCE NAD, activity normal for age, well developed/ well nourished, no cyanosis, pallor, or diaphoresis. EYES lids/conjunctiva normal. EARS/NOSE/THROAT Mucous membranes moist, nares normal, lips/teeth normal uvula midline without oral pharyngeal erythema, exudate or swelling TMs normal bilaterally. No lymphangitis/lymphedema. HEAD/NECK normocephalic atraumatic, no facial trauma, neck is supple. RESPIRATORY respiratory effort normal, speaks in full sentences, no tripod position, no accessory muscle use. Lungs clear to auscultation without rhonchi, wheezes, rales CARDIAC Regular rate and rhythm, no edema. ABDOMINAL Soft, ND/NT. No evidence of fluid wave. No pulsatile masses on exam, rebound tenderness, Roa sign or pain over Mcburney's point. MUSCLES/EXTREMITIES No abnormal range of motion, no swelling. SKIN Warm, pink and dry. No rashes, dermatoses, petechiae or lesions. NEUROLOGICAL Speech is clear and appropriate. Normal level of consciousness. Gait and coordination are normal. 5/5 strength in all extremities. PSYCH Normal mood and affect. Judgement/competence is appropriate Results & Data Results & Data Vital Signs (Past 12 Hours) Vital Signs Temp Pulse Pulse Resp BP Pulse Ox O2 Del Method 11/06/24 07:53 36.3 C L 81 16 104/61 94 Room Air 11/06/24 07:08 71 11/06/24 03:36 36.7 C 77 18 136/70 97 Room Air 11/05/24 23:30 36.8 C 80 18 127/64 96 Room Air PG Care Time/CCT Total # of Minutes Spent Total Time Spent with Patient: Total time spent is greater than 50% in coordination of care (as documented) at patient's floor/unit and/or counseling patient: Coding Level of Care Code 39235 SUB INP/OBS CARE 2/35MIN Diagnoses Confusion and disorientation R41.0 Alcohol dependence F10.20 Urinary tract infection N39.0 Wernickes encephalopathy E51.2 Prostate cancer C61 Transitional cell bladder cancer C67.9
[2024-11-06] MEDS: diphenhydrAMINE 50 MG/ML VIAL IV STA (22:45)
--- NOTE | 2024-11-07 13:01 | Hospitalist Progress Note ---
Date of Service November 07, 2024 Assessment & Plan (1) Confusion and disorientation: Plan: Possible Warnicke's encephalopathy related to alcoholism. He does not appear to have a metabolic encephalopathy. UTI has been ruled out. Supportive care. (2) Alcohol dependence: Plan: Stable. No evidence of DTs. Continue AWSS protocol as needed (3) Urinary tract infection: Plan: Ruled out. Admission urine analysis negative for bacteria. Urology consultation and recommendations appreciated (4) Wernickes encephalopathy: Plan: Possible. Continue thiamine and folic acid replacement (5) Transitional cell bladder cancer: Plan: By history. Urology consult appreciated. Plan Hopeful discharge to [facility] when arrangements are finalized. He is medically stable for discharge Admission and Anticipated Discharge Date Admission Date: November 04, 2024 Subjective Alert. Pleasant. Afebrile. Awaiting placement at [facility]. Medically stable. Review of Systems 2 Review of Systems: Constitutionalno fever or chills ENTno blurred vision, no double vision, no epistaxis, no sore throat Respiratoryno cough, no wheezing, no shortness of breath Cardiacno palpitations, no chest pain, no syncope Rosa nausea, vomiting, diarrhea, melena, hematochezia GUno urinary retention, no urinary incontinence, no dysuria, no hematuria Musculoskeletalno joint pain, no muscle tenderness Skinno bruising, no rashes, no pruritus Neurono isolated weakness, no paresthesia, no weakness Psychno depression, no anxiety Physical Exam 2 Physical Exam: General-alert. Oriented to name and place. No fever, no chills HEENT-head atraumatic and normocephalic, pupils equal and reactive to light, extraocular muscles intact Neck-no lymphadenopathy or thyromegaly, trachea midline Chest-clear to auscultation. No rales, wheezing or rhonchi Cardiac-regular rate and rhythm, normal S1 and S2 Abdomen-normal bowel sounds, no hepatosplenomegaly Extremities-no cyanosis, clubbing, or edema Neuro-cranial nerves II through XII intact, motor and sensory function within normal limits, strength symmetrical, no focal deficits Psych-normal affect, normal mood Results & Data Results & Data Vital Signs (Past 12 Hours) Vital Signs Temp Pulse Pulse Resp BP BP Pulse Ox 11/07/24 11:36 36.6 C 83 17 111/64 94 11/07/24 11:03 36.4 C L 83 17 100/62 95 11/07/24 07:19 36.5 C 96 H 20 120/72 94 11/07/24 07:16 11/07/24 07:07 102 H 11/07/24 04:00 36.5 C 84 18 129/71 96 O2 Del Method 11/07/24 11:36 Room Air 11/07/24 11:03 Room Air 11/07/24 07:19 Room Air 11/07/24 07:16 Room Air 11/07/24 07:07 11/07/24 04:00 Room Air Laboratory Results 11/04/24 13:04 11/04/24 13:04 PG Care Time/CCT Total # of Minutes Spent Total Time Spent with Patient: Total time spent is greater than 50% in coordination of care (as documented) at patient's floor/unit and/or counseling patient: Coding Level of Care Code 17196 SUB INP/OBS CARE 3/50MIN Diagnoses Confusion and disorientation R41.0 Alcohol dependence F10.20 Urinary tract infection N39.0 Wernickes encephalopathy E51.2 Transitional cell bladder cancer C67.9
[2024-11-08 07:30] VITALS: RESP 16
[2024-11-08] MEDS: THIAMINE HCL 100 MG TAB PO SCH (07:45)
[2024-11-08] MEDS: FOLIC ACID 1 MG TAB PO SCH (07:45)
[2024-11-08 11:06] VITALS: O2SAT 97
--- NOTE | 2024-11-08 12:49 | Discharge Summary ---
Discharge Summary Date of Service November 08, 2024 Principal Dx & Hospital Course #1 = Principal Diagnosis (1) Confusion and disorientation: Possible Warnicke's encephalopathy related to alcoholism. He does not appear to have a metabolic encephalopathy. UTI has been ruled out. Supportive care. (2) Alcohol dependence: Stable. No evidence of DTs. Continue AWSS protocol as needed while hospitalized (3) Urinary tract infection: Ruled out. Admission urine analysis negative for bacteria. Urology consultation and recommendations appreciated (4) Wernickes encephalopathy: Possible. Continue thiamine and folic acid replacement (5) Transitional cell bladder cancer: By history. Urology consult appreciated. Plan Discharge to [facility] today, November 08 Admission HPI Per Admitting Provider The patient is an 84-year-old male with past medical history including mild cognitive impairment, urethral stricture, BPH with LUTS, incomplete bladder emptying, alcohol dependence, vit D deficiency, hyperlipidemia, insomnia, transitional bladder cell cancer, and prostate cancer.Patient is brought to the emergency department after his friend who checks on him regularly, found him in a more disheveled state than usual., Lying on the sofa in his home, and unable to get up on his own. His friend reports that he usually checks him on a daily basis, had not seen him yesterday, but did become concerned when he tried to scar l his friend this evening, and Mr. Thomas did not respond. Mr. Thomas has been undergoing weekly BCG intravesical injections, and his most recent was on Thursday, 4 days ago. The patient was brought to the emergency department for evaluation, was found to be weak, able to respond to questions but slowed, and was referred for evaluation for admission to the [facility] Discharge Exam General-alert. Oriented to name and place. No fever, no chills HEENT-head atraumatic and normocephalic, pupils equal and reactive to light, extraocular muscles intact Neck-no lymphadenopathy or thyromegaly, trachea midline Chest-clear to auscultation. No rales, wheezing or rhonchi Cardiac-regular rate and rhythm, normal S1 and S2 Abdomen-normal bowel sounds, no hepatosplenomegaly Extremities-no cyanosis, clubbing, or edema Neuro-cranial nerves II through XII intact, motor and sensory function within normal limits, strength symmetrical, no focal deficits Psych-normal affect, normal mood Discharge Plan Discharge Items Patient Disposition: Transfer Inpatient Rehab Fac Reason For Visit: SEPSIS DUE TO UTI, CONFUSION Discharge Diagnosis: Suspected Warnicke's encephalopathy Activity: Resume your previous activity Non-emergency contact: Primary Care Provider Call non-emergency contact if: you have any medication questions and your symptoms worsen Follow-up/Referrals: Mike Zurita, [Primary Care Provider] - Diet: Regular Addtl Attending Provider Instructions: Follow-up with primary care provider soon as possible after discharge from [facility] Pending Studies at Discharge: No Stand-Alone Forms: My [facility] Skilled Items Patient informed of condition?: Yes DNR: Yes Discharge Level of Care: Acute rehab Communicable Disease: No Discharge Prognosis: Stable Lines: None Urinary Catheter: No Medications and DC Order Prescriptions: New aspirin [Children's Aspirin] 81 mg Tablet,Chewable 81 mg PO DAILY Qty: 0 0RF thiamine HCl (vitamin B1) 100 mg Tablet 100 mg PO QAM Qty: 0 0RF folic acid 1 mg Tablet 1 mg PO QAM Qty: 0 0RF Continued [facility] [facility] 50 mg-15 unit- 4.5 mg-2.5 mg tablet,chewable 2 tab PO DAILY Centrum Silver Ultra Men's 300-600-300 mcg tablet 1 tab PO DAILY atorvastatin 10 mg tablet 10 mg PO HS tamsulosin 0.4 mg capsule 0.4 mg PO QAM Rx Instructions: ACCORDING TO EXTENDED MED HX---NOT FILLED SINCE 11/18/23 FOR 90 DAYS. finasteride [Proscar] 5 mg tablet 5 mg PO QAM Anoro Ellipta 62.5-25 mcg/actuation blister with device 1 inh inhalation QAM Discharge Orders: Discharge Order (Routine); Ordered 11/08/24 Ordered By: Juve Reyes Admission Data Admit Date/Time: 11/04/24 07:28 Attending Provider: Juve Reyes Admit Provider: Gene Bear Primary Care Provider: Mike Zurita Other Providers: Gene Bear; Rylan Perez; [facility] Hospital Stay Data Consultations 11/02/24 01:00 ED Decision to Admit Stat 11/02/24 02:46 Consult Urology Routine Diagnostic Imagining Performed 11/01/24 23:25 CT head/brain wo con Stat Pending Results Patient Have Any Pending Studies at Discharge: No Discharge Instructions Given to Patient (Per Discharging Provider) Follow-up with primary care provider soon as possible after discharge from [facility] Total Time Total Time Spent Total Time Spent (In Minutes): 45 minutes Coding Level of Care Code 25143 INP/OBS DISCH >30 MIN Diagnoses Confusion and disorientation R41.0 Alcohol dependence F10.20 Urinary tract infection N39.0 Wernickes encephalopathy E51.2 Transitional cell bladder cancer C67.9
[2024-11-08 16:54] VITALS: BP 114/62; PULSE 86; TEMP 98.1
== END 2024-11-08 17:52 | DRG 641 ==
LOC: EDINP 23:13 → ED 23:13 → SUATTDRO 11-02 01:38 → 2N 11-02 02:46 → SUATTDRO 11-04 07:28